=== PATIENT | female | born 1990 | race Caucasian/White ===

== ENCOUNTER 2017-06-28 20:38 | Emergency (ER) | payer BC ==
[~2017-06-28] VITALS: Ht 162.6 cm; Wt 68.0 kg
[2017-06-28 20:47] VITALS: BP_SYST 123
[2017-06-28] MEDS ORDERED: IBUPROFEN 800 MG TABLET PO ONE (21:45)
[2017-06-28 22:38] VITALS: BP_SYST 124
== END 2017-06-28 22:38 | disposition home or self-care (01) ==
LOC: SED 20:38
DX: S83.92XA Sprain of unspecified site of left knee, initial encounter (principal); R03.0 Elevated blood-pressure reading, without diagnosis of hypertension; V00.131A Fall from skateboard, initial encounter; Y93.51 Activity, roller skating (inline) and skateboarding; Y92.89 Other specified places as the place of occurrence of the external cause; Y99.8 Other external cause status
CPT/HCPCS: 73564; 99284